=== PATIENT | male | born 1950 | race Caucasian/White ===

== ENCOUNTER 2019-08-26 13:42 | Observation (INO) ==
[2019-08-26] MEDS ORDERED: NS 0.9% 1000 ml BAG 1,000 ML IV ONE (13:55)
[2019-08-26 14:17] LABS: ABS Basophils 0.1 10^3/ul (0-0.2); ABS Eosinophils 0.1 10^3/ul (0-0.6); ABS Lymphocytes 1.2 10^3/ul (1.0-4.8); ABS Monocytes 0.6 10^3/ul (0-0.8); Eosinophil % 1.8 %; Hematocrit 36 % (42-52); Hemoglobin 12.1 g/dL (14.0-18.0); Lymphocyte % 14.8 %; Mean Corpuscular HGB Conc 33 g/dL (31-36); Mean Corpuscular Hemoglobin 27 pg (27-31); Mean Corpuscular Volume 82 fL (80-94); Mean Platelet Volume 9.7 fL (7.4-10.4); Nucleated Red Blood Cells % 0.1; Platelet Count 156 10^3/uL (150-450); Red Blood Count 4.43 10^6 /uL (4.18-5.48); Red Cell Distribution Width 15 % (10-15)
[2019-08-26 14:34] LABS: Troponin I 0.07 ng/mL (<0.03)
[2019-08-26 14:42] LABS: ALT 18 U/L (7-52); AST 25 U/L (13-39); Albumin/Globulin Ratio 1.3 (1-3); Alkaline Phosphatase 65 U/L (34-104); Anion Gap 7 mmol/L (2-11); BUN/Creatinine Ratio 12.6 (8-20); Blood Urea Nitrogen 18 mg/dL (6-24); CO2 Carbon Dioxide 25 mmol/L (22-32); Calcium 9.4 mg/dL (8.6-10.3); Chloride 106 mmol/L (101-111); EGFR African American 59.7 (>60); EGFR Non-African American 49.3 (>60); Glucose 95 mg/dL (70-100); Magnesium 1.9 mg/dL (1.9-2.7); Potassium 4.3 mmol/L (3.5-5.0); Sodium 138 mmol/L (135-145)
[2019-08-26] MEDS ORDERED: Metoprolol Tartrate 5 mg VIAL 5 ml VIAL (1 mg/ml) IV ONE (14:51)
[2019-08-26 14:58] LABS: Alcohol, S < 10 mg/dL (<10)
[2019-08-26 15:07] LABS: T4, Total 8.98 mcg/dL (6.09-12.23)
[2019-08-26 15:10] LABS: TSH (Thyroid Stimulating Horm) 1.65 mcIU/mL (0.34-5.60)
[2019-08-26] MEDS ORDERED: Iodixanol (CONTRAST) 320 MG/ML 100 ML SDV IV ONE (15:36)
[2019-08-26] MEDS ORDERED: Diltiazem IV BAG D5W Premix 125 MG/125 ML BAG IV SCH ×2 (17:00→18:00)
[2019-08-26] MEDS ORDERED: NS 0.9% 1000 ml BAG 1,000 ML IV SCH (18:00)
[2019-08-26 18:20] LABS: Troponin I 1.28 ng/mL (<0.03)
[2019-08-26] MEDS ORDERED: Heparin DRIP 25,000 UNITS(*) 25,000 UNITS/500 ML BAG IV SCH (20:15)
[2019-08-26] MEDS ORDERED: Heparin 5000 UNITS/ML VIAL(*) 1 ml vial IV SCH (21:00)
[2019-08-26 21:07] LABS: Troponin I 1.22 ng/mL (<0.03)
[2019-08-26] MEDS ORDERED: Magnesium Sulfate IV 1GM/100ML 1 GM/100 ML BAG IV ONE (21:15)
[2019-08-27 01:28] LABS: Troponin I 1.01 ng/mL (<0.03)
[2019-08-27 04:29] LABS: BUN/Creatinine Ratio 13.8 (8-20); Calcium 8.6 mg/dL (8.6-10.3); EGFR Non-African American 62.8 (>60); Magnesium 2.1 mg/dL (1.9-2.7); Potassium 4.1 mmol/L (3.5-5.0)
[2019-08-27 04:30] LABS: ABS Eosinophils 0.4 10^3/ul (0-0.6); ABS Lymphocytes 2.1 10^3/ul (1.0-4.8); ABS Monocytes 0.5 10^3/ul (0-0.8); Eosinophil % 6.8 %; Hematocrit 33 % (42-52); Hemoglobin 10.6 g/dL (14.0-18.0); Lymphocyte % 36.9 %; Mean Corpuscular HGB Conc 32 g/dL (31-36); Mean Corpuscular Hemoglobin 27 pg (27-31); Mean Corpuscular Volume 86 fL (80-94); Mean Platelet Volume 10.1 fL (7.4-10.4); Nucleated Red Blood Cells % 0.1; Platelet Count 138 10^3/uL (150-450); Red Blood Count 3.89 10^6 /uL (4.18-5.48); Red Cell Distribution Width 15 % (10-15); White Blood Count 5.6 10^3/uL (3.5-10.8)
[2019-08-27] MEDS ORDERED: Metoprolol Tartrate 5 mg VIAL 5 ml VIAL (1 mg/ml) IV PRN (07:59)
[2019-08-27] MEDS: Multivitamins/Minerals TAB PO SCH (08:49)
[2019-08-27] MEDS: Enoxaparin 100 MG/ML SYR(*) SUBCUT SCH ×2 (08:54→20:13)
[2019-08-27] MEDS ORDERED: Naloxone 0.4 mg VIAL 0.4 mg/ml 1 ml VIAL ONE (11:51)
[2019-08-27] MEDS ORDERED: Midazolam 5 mg/5 ml VIAL 1 mg/ml 5 ml VIAL (5 mg) ONE (11:51)
[2019-08-27] MEDS ORDERED: Flumazenil 0.5 mg/5 ml 0.1 MG/ML 5 ml VIAL ONE (11:51)
[2019-08-27] MEDS ORDERED: fentaNYL 100 mcg/2 ml 50 MCG/ML VIAL ONE (11:51)
[2019-08-28 06:05] LABS: Hematocrit 31 % (42-52); Hemoglobin 10.7 g/dL (14.0-18.0); Mean Corpuscular HGB Conc 34 g/dL (31-36); Mean Corpuscular Hemoglobin 28 pg (27-31); Mean Corpuscular Volume 82 fL (80-94); Mean Platelet Volume 10.4 fL (7.4-10.4); Platelet Count 137 10^3/uL (150-450); Red Blood Count 3.84 10^6 /uL (4.18-5.48); Red Cell Distribution Width 15 % (10-15); White Blood Count 5.9 10^3/uL (3.5-10.8)
[2019-08-28 07:42] VITALS: BP 122/86
[2019-08-28] MEDS ORDERED: Albuterol HFA INHALER 8 gm MDI INH PRN (08:19)
[2019-08-28] MEDS: Multivitamins/Minerals TAB PO SCH (09:34)
== END 2019-08-28 11:30 | disposition home or self-care (01) ==
LOC: ED 13:42 → MEDTELE 13:42
PROVIDERS: ADMIT Internal Medicine; ATTEND Internal Medicine

== ENCOUNTER 2021-10-16 09:00 | Inpatient (IN) ==
[~2021-10-16 09:00] MED LIST: Buffered Lidocaine 1% SYRIN 1 ml INTRADERM ONE; HYDROmorphone 1 MG/1 ML SYRINGE IV PRN; Lactated Ringers 1000 ml BAG 1,000 ML IV SCH; Naloxone 0.4 mg VIAL 0.4 mg/ml 1 ml VIAL IV PRN; Prochlorperazine 5 mg/ml 2 ml VIAL (10 mg) IV PRN
[2021-10-16] MEDS ORDERED: Buffered Lidocaine 1% SYRIN 1 ml INTRADERM ONE (10:20)
[2021-10-16] MEDS ORDERED: ceFAZolin 2 GM in NS PREMIX 2 GM/100 ML BAG IVPB ONE (10:20)
[2021-10-16 10:26] LABS: INR 0.96 (0.89-1.11)
[2021-10-16] MEDS ORDERED: fentaNYL 100 mcg/2 ml 50 MCG/ML VIAL ONE (12:51)
[2021-10-16] MEDS ORDERED: Midazolam 2 mg/2 ml VIAL 1 mg/ml 2 ml VIAL (2 mg) ONE (12:51)
[2021-10-16] MEDS ORDERED: Lactulose 30 ml UDC PO PRN (14:04)
[2021-10-16] MEDS ORDERED: Ondansetron 4 mg VIAL 2 MG/ML 2 ml VIAL IV PRN (14:04)
[2021-10-16] MEDS ORDERED: Ondansetron ODT 4 mg TAB 4 MG TAB PO PRN (14:04)
[2021-10-16] MEDS ORDERED: Magnesium Hydroxide LIQ 30 ML UDC PO PRN (14:04)
[2021-10-16] MEDS ORDERED: Morphine 2 MG/ML SYRINGE IV PRN (14:04)
[2021-10-16] MEDS ORDERED: Albuterol HFA INHALER 8 gm MDI INH PRN (14:10)
[2021-10-16] MEDS ORDERED: Ondansetron 4 mg VIAL 2 MG/ML 2 ml VIAL ONE (15:41)
[2021-10-16] MEDS ORDERED: Propofol 10 MG/ML 20 ML BTL ONE (15:41)
[2021-10-16] MEDS ORDERED: Dexamethasone IV 4 MG/ML VIAL 1 ml VIAL ONE (15:41)
[2021-10-16] MEDS ORDERED: Lidocaine 2% PF 5 ML VIAL ONE (15:41)
[2021-10-16] MEDS ORDERED: HYDROmorphone 1 MG/1 ML SYRINGE ONE (16:35)
[2021-10-16] MEDS: Lactated Ringers 1000 ml BAG 1,000 ML IV SCH (18:26)
[2021-10-16] MEDS: ceFAZolin 1 GM ADVAN 1 GM in NS 0.9% 50 ML 50 ML IVPB SCH (20:23)
[2021-10-16] MEDS: Magnesium Hydroxide LIQ 30 ML UDC PO SCH (20:24)
[2021-10-17] MEDS: ceFAZolin 1 GM ADVAN 1 GM in NS 0.9% 50 ML 50 ML IVPB SCH ×2 (05:05→13:04)
[2021-10-17] MEDS: Lactated Ringers 1000 ml BAG 1,000 ML IV SCH (05:06)
[2021-10-17 05:48] LABS: Hematocrit 31 % (42-52); Hemoglobin 10.3 g/dL (14.0-18.0); Mean Platelet Volume 10.2 fL (7.4-10.4); Platelet Count 139 10^3/uL (150-450)
[2021-10-17 06:22] LABS: Calcium 8.4 mg/dL (8.6-10.3); Potassium 4.7 mmol/L (3.5-5.0); eGFR CKD-EPI 76.4 (>60)
[2021-10-17 07:45] VITALS: BP 129/80
[2021-10-17] MEDS: Magnesium Hydroxide LIQ 30 ML UDC PO SCH (08:16)
[2021-10-17] MEDS ORDERED: Vitamin THERAPEUTIC TAB PO SCH (09:00)
== END 2021-10-17 13:45 | disposition home or self-care (01) | DRG 470 ==
LOC: AA 09:44 → SSU 18:01
PROVIDERS: ADMIT Orthopaedic Surgery Adult Reconstructive Orthopaedic Surgery; ATTEND Orthopaedic Surgery Adult Reconstructive Orthopaedic Surgery